=== PATIENT | female | born 1955 | race Caucasian/White ===

== ENCOUNTER 2018-11-21 06:35 | Inpatient (IN) ==
[2018-11-21] MEDS ORDERED: Thrombin Topical Soln 5,000 UNIT Vial TOPICAL ONE (07:03)
[2018-11-21] MEDS ORDERED: Bupivacaine/Epinephrine 0.5% Inj 50 ML Vial ONE ×3 (07:03→07:07)
[2018-11-21] MEDS ORDERED: Gelatin Size 100 Topical Foam ONE (07:04)
[2018-11-21] MEDS ORDERED: Bupivacaine/Epinephrine PF Inj 0.5% 30 ML Vial ONE (07:37)
[2018-11-21] MEDS ORDERED: Metoprolol Tartrate 25 MG Tablet PO ONE (07:45)
[2018-11-21] MEDS ORDERED: Sodium Chlor 0.9% Inj 500 ML IV.CONT ONE (07:45)
[2018-11-21] MEDS ORDERED: Chlorhexidine Gluconate 2% 1 Pack (2 Cloths) TOPICAL ONE (07:45)
[2018-11-21] MEDS ORDERED: Vancomycin Inj 1,400 MG in Sodium Chlor 0.9% Inj 500 ML IV.SIG SCH (08:00)
[2018-11-21] MEDS ORDERED: Lidocaine PF 1% Inj 5 ML Syringe OTHER ONE (08:32)
[2018-11-21] MEDS ORDERED: Phenylephrine/NS 1000 MCG/10ML Syringe IV.PUSH ONE (08:32)
[2018-11-21] MEDS ORDERED: Neostigmine Inj 5 MG/5 ML Syringe IV.PUSH ONE (08:32)
[2018-11-21] MEDS ORDERED: Glycopyrrolate Inj 1 MG/5 ML Syringe IV.PUSH ONE (08:32)
[2018-11-21] MEDS ORDERED: Bupivacaine Liposomal PF 1.3% Inj 20 ML Vial ONE (11:03)
[2018-11-21] MEDS ORDERED: Bupivacaine Liposomal PF 1.3% Inj 20 ML Vial INFILTRATN ONE (11:49)
--- NOTE | 2018-11-21 12:17 | ECG ---
Date Performed: 11/21/2018 Time Performed: 08:13:49 PTAGE: 63 years EKG: Sinus rhythm NORMAL ECG NO PREVIOUS TRACING DOCTOR: Miquel Barney Interpretating Date/Time 11/21/2018 12:11:21
[2018-11-21] MEDS ORDERED: Non-Formulary Drug (Albuterol Sulfate 2 PUFF) INHALATION PRN (12:18)
[2018-11-21] MEDS ORDERED: Aluminum/Magnesium/Simethacone Susp 30 ML UDC PO PRN (12:31)
[2018-11-21] MEDS ORDERED: Menthol 5.8 MG Lozenge BUCCAL PRN (12:31)
[2018-11-21] MEDS ORDERED: Magnesium Sulfate Inj 2 GM in Sodium Chlor 0.9% Inj 96 ML IV.SIG PRN (12:31)
[2018-11-21] MEDS ORDERED: Potassium Chlor 20 mEq Premix 20 MEQ/100 ML PIGGYBACK IV.SIG PRN (12:31)
[2018-11-21] MEDS ORDERED: Calcium Gluconate Inj 1 GM in Sodium Chlor 0.9% Inj 100 ML IV.SIG PRN (12:31)
[2018-11-21] MEDS ORDERED: Bisacodyl 10 MG Supp RECTAL PRN (12:31)
[2018-11-21] MEDS ORDERED: Zolpidem Tartrate 5 MG Tablet PO PRN (12:31)
[2018-11-21] MEDS ORDERED: Acetaminophen 325 MG Tablet PO PRN (12:31)
[2018-11-21] MEDS ORDERED: fentaNYL Citrate Inj 100 MCG/2 ML Ampul ONE ×2 (12:33)
[2018-11-21] MEDS ORDERED: HYDROmorphone PF Inj 0.5 MG/0.5 ML Syringe ONE (12:35)
--- NOTE | 2018-11-21 12:47 | XR ---
EXAM DATE: 11/21/2018 12:39 PM EST AGE/SEX: 63 years / Female INDICATIONS: Lumbar fusion L4-5. CLINICAL DATA: This is the patient's initial encounter. Patient reports that signs and symptoms have been present for 1 day and indicates a pain score of 0/10. MEDICAL/SURGICAL HISTORY: None. None. COMPARISON: No prior exams available for comparison. FINDINGS: Patient is status post lumbar spinal surgery with fusion with pedicular screws at L4-L5.. There is mi ld grade 1 anterior spondylolisthesis of L4 over L5. The hardware is grossly intact. CONCLUSION: Status post lumbar spinal fusion with pedicular screws at L4-5.. Electronically signed by: Kurt Sanchez MD Board Certified Radiologist 11/21/2018 12:45 PM EST
--- NOTE | 2018-11-21 12:50 | P.OP ---
- Preoperative Diagnosis (1) Chronic bilateral low back pain with bilateral sciatica (2) Lumbar stenosis with neurogenic claudication (3) Spondylolisthesis, lumbar region (4) Lumbar facet arthropathy (5) Degeneration of lumbar intervertebral disc Date of procedure: 11/21/18 Procedure: Lumbar L4-5 transforaminal interbody autograft fusion; L4-5 decompressive laminectomy with facetectomy and foraminotomy with microdiscectomy; L4-5 pedicle screw fixation; L4-5 interbody cage placement; microsurgical technique Anesthesia: GETA Surgeon: Gonzalo Ash MD Financial Auditor: Katia Duarte Estimated blood loss (mL): 30 Pathology: none sent Operation and Findings: This was a difficult case due to the patient body habitus and obesity. The step- by-step details of the procedure, indications, alternatives, risks and potential complications were fully discussed with the patient. The patient fully understood. All the questions were answered. No guarantees were given. The patient voiced requesting the procedure and provided informed consents. The patient was offered the alternative of delaying the procedure and continuing with nonsurgical management. Prior to the procedure, the surgical incision was marked in the preoperative surgical holding room, and the procedure, risks, and potential complications revisited with the patient. Placement of electrodes for intraoperative neurophysiological monitoring was completed. The patient was taken to the operative room, and following induction of general anesthesia, endotracheal intubation was performed. A Olivera catheter, bilateral TAMRA hose and sequential compression devices were placed and kept throughout the procedure. The patient was positioned prone, over a José table over a Andrew frame. All pressure in the preoperative surgical holding room points were carefully padded. The eyes were tapped shut after ointment was applied by the anesthesiologist to prevent corneal abrasion. A Meena hugger was placed over the exposed lower body to maintain control of the core body temperature. The lumbar region was prepped and draped in the usual sterile fashion. Once the patient was positioned, a localizing cross-table lateral x-ray was performed with a C-arm. A right midline incision was outlined on the skin. The skin incision made with a #10 blade. Small bleeders were controlled with the cautery. The dissection was then carried out into deeper planes and through the thoracolumbar fascia with a Bovie. The intermuscular septum was identified and the mucles were blunted dissected along the septum and detached from the right L4 and L5 lamina and facet. The facet and transverse process at the right L4-5 levels were exposed and the proper anatomical landmarks were identified. A microsurgical self-retaining retractor was placed on the incision, and a localizing lateralizing cross-table x-ray was performed. Intraoperative microscope magnification used for further dissection. There was significant facet and ligamentum flavum hypertrophy and spondylolisthesis noted. The right L4-5 facet was resected with a drill bit along with the lamina and there was severe foraminal and spinal stenosis from hypertrophied ligamentum flavum and facet which was decompressed. There was disc height collapse from the degeneration along with disc protrusion also leading to the foraminal stenosis. Epidural hemostasis was achieved with bipolar cautery and Gelfoam with thrombin. Subsequently entered into the disc space at the L4-5 level with a # 15 blade and sonny were used for discectomy. I then placed PEEK cage packed with local autograft bone and more local autograft bone was packed adjacent to the cage in interspace for added interbody fusion. With placement of the cage, I was able to distract the interspace and opened up the foramen further bilaterally. Subsequently in order to facilitate the fusion and provide stabilization, pedicle screw fixation was undertaken using [place] spine screws on entry point at the right L4 and L5 levels at the junction of the transverse process and facet through the pedicle into the body. Subsequently using AP and lateral fluoroscopy tap and screw placement. The screws were then connected with a regino and locked in place with caps. The construct appeared very secure at this point. The area was then copiously irrigated with Vancomycin solution and powder. The retractors were removed and the bipolar cautery used for hemostasis. The muscle fascia was then approximated using 2-0 Vicryl interrupted stitches and then 3-0 Vicryl subcuticular stitches also placed in interrupted fashion. The final skin closure was completed with Mastisol and Steri-Strips. A sterile dressing was then applied. The patient then turned in supine position, extubated and taken to recovery room. There were no intraoperative complications. All sponge and needle counts were correct at the end of procedure. Estimated blood loss about 30 ml.
[2018-11-21] MEDS ORDERED: *morphine SULFATE 4 MG/ML PERIprocedure ONLY ONE ×2 (12:56→14:11)
[2018-11-21] MEDS: Hydrocortisone Sod Succinate 100 MG Vial IV.PUSH SCH ×2 (14:41→23:30)
[2018-11-21] MEDS: ceFAZolin Inj 1 GM in Sodium Chlor 0.9% Inj 100 ML IV.SIG SCH (15:07)
[2018-11-21 15:41] LABS: Baso % (Auto) 0.3 % (0.0-2.0); Eos % (Auto) 0.3 % (0.0-4.0); Hemoglobin 11.6 gm/dL (11.6-15.3); Lymph # (Auto) 1.4 th/mm3 (1.0-4.8); Lymph % (Auto) 9.3 % (9.0-44.0); Mean Corpuscular HGB Conc 34.1 % (32.0-36.0); Mean Corpuscular Hemoglobin 32.8 pg (27.0-34.0); Mean Corpuscular Volume 96.1 fL (80.0-100.0); Mean Platelet Volume 6.8 fL (7.0-11.0); Mono # (Auto) 0.4 th/mm3 (0.0-0.9); Mono % (Auto) 2.8 % (0.0-8.0); Neut % (Auto) 87.3 % (16.0-70.0); Platelet Count 390 th/mm3 (150-450); Red Blood Count 3.54 mil/mm3 (4.00-5.30); Red Cell Distribution Width 12.3 % (11.6-17.2); White Blood Count 14.9 th/mm3 (4.0-11.0)
[2018-11-21 15:53] LABS: Calcium 8.4 mg/dL (8.5-10.1); Carbon Dioxide 26.5 meq/L (21.0-32.0); Potassium 3.9 meq/L (3.5-5.1)
[2018-11-21] MEDS ORDERED: Morphine Sulfate Inj 2 MG/ML Vial ONE (16:12)
[2018-11-21] MEDS: Gabapentin 300 MG Capsule PO SCH (17:54)
[2018-11-21] MEDS: Montelukast 10 MG Tablet PO SCH (17:54)
--- NOTE | 2018-11-21 18:09 | P.HPNS ---
History of Present Illness Service: Neurosurgery Primary Care Physician: Mr Jarred Garcia History of Present Illness: 63-year-old lady with a chronic history of low back pain with associated neurogenic claudication and radiculopathy in both legs. She has failed conservative treatment measures including physical therapy and pain management and is debilitated with the activity restriction and discomfort. She has severe L4-5 spinal stenosis from facet and ligamentum flavum hypertrophy along with disc protrusion and advanced degenerative disc disease with grade 2 spondylolisthesis. She requests surgical intervention. - Diagnosis (1) Chronic bilateral low back pain with bilateral sciatica (2) Lumbar stenosis with neurogenic claudication (3) Spondylolisthesis, lumbar region (4) Lumbar facet arthropathy (5) Degeneration of lumbar intervertebral disc Inpatient Certification: I certify that the inpatient services were ordered in accordance with Medicare regulations governing the order. This includes certification that hospital inpatient services are reasonable and necessary and in the case of services not specified as inpatient-only under 42 CFR 419.22(n), that they are appropriately provided as inpatient services in accordance to with the 2-midnight benchmark under 43 CFR 412.3(e) Estimated Total Length of Stay (Days): 3 Plans for Post Hospital Care: Not yet determined [facility] - Medical History Medical History: Medical History (Last Reviewed 11/21/18 @ 18:07 by Gonzalo Ash MD) Asthma Back pain - Tobacco History Second Hand Smoke Exposure: No Tobacco Use In Past 30 Days: No Smoking Status: Former smoker - Alcohol History How Often Do You Have a Drink Containing Alcohol: Never - Substance Use History Substance History: No History of Abuse - Travel History Recent Travel in the [place] Within the Last 8 Weeks: No Recent Travel Out of the Country Within the Last 8 Weeks: No Medications and Allergies Active Medications: Active Medications Acetaminophen (Tylenol) 650 mg PO Q4H PRN PRN Reason: TEMPERATURE > 101.5 F Hydrocodone Bitart/Acetaminophen ([place] 10/325) 1 tab PO Q4H PRN PRN Reason: Pain Scale 1 To 5 Hydrocodone Bitart/Acetaminophen ([place] 10/325) 2 tab PO Q4H PRN PRN Reason: PAIN SCALE 6 TO 10 Al Hydrox/Mg Hydrox/Simethicone (Mag-Al Plus Susp Liq) 30 ml PO Q6H PRN PRN Reason: DYSPEPSIA Al Hydroxide/Mg Hydroxide (Milk Of Magnesia Liq) 30 ml PO Q12H PRN PRN Reason: Mild Constipation Albuterol (Albuterol Neb (Prn)) 2.5 mg NEB Q4HR NEB PRN PRN Reason: WHEEZING Amitriptyline HCl (Elavil) 100 mg PO DAILY [facility] Ascorbic Acid (Vitamin C) 1,000 mg PO DAILY [facility] Bisacodyl (Dulcolax Supp) 10 mg RECTAL DAILY PRN PRN Reason: SEVERE CONSITIPATION Citalopram Hydrobromide (Celexa) 40 mg PO DAILY [facility] Clonidine HCl (Catapres) 0.1 mg PO Q6H PRN PRN Reason: SYS BP GREATER THAN 170 MMHG Cyclobenzaprine HCl (Flexeril) 10 mg PO Q8HR [facility] Last Admin: 11/21/18 15:49 Dose: 10 mg Furosemide (Lasix) 60 mg PO DAILY [facility] Gabapentin (Neurontin) 600 mg PO TID [facility] Last Admin: 11/21/18 17:54 Dose: 600 mg Hydrocortisone Sodium Succinate (Solucortef Inj) 100 mg IV.PUSH Q8HR [facility] Stop: 11/22/18 06:01 Last Admin: 11/21/18 14:41 Dose: 100 mg Vancomycin HCl 1,400 mg/ (Sodium Chloride) 514 mls @ 250 mls/hr IV.SIG HUMAN CAPITAL CONSULTANT [facility] Stop: 11/24/18 07:59 Last Admin: 11/21/18 08:32 Dose: 250 mls/hr Lactated Ringer's (Lr 1000 Ml Inj) 1,000 mls @ 30 mls/hr IV.CONT .Q24H ONE Stop: 11/22/18 07:44 Last Admin: 11/21/18 07:15 Dose: 30 mls/hr Sodium Chloride (Ns Inj) 500 mls @ 30 mls/hr IV.CONT .[id number] ONE Stop: 11/22/18 00:24 Last Admin: 11/21/18 08:19 Dose: Not Given Cefazolin Sodium 1 gm/ Sodium (Chloride) 100 mls @ 200 mls/hr IV.SIG Q8H [facility] Stop: 11/22/18 06:29 Last Admin: 11/21/18 15:07 Dose: 200 mls/hr Potassium Chloride/Sodium Chloride (Ns + Kcl 20 Meq Inj) 1,000 mls @ 100 mls/ hr IV.CONT .Q10H [facility] Stop: 11/22/18 12:44 Last Admin: 11/21/18 15:17 Dose: 100 mls/hr Potassium Chloride (Kcl 20 Meq Premix Inj) 20 meq in 100 mls @ 50 mls/hr IV.SIG UNSCH PRN PRN Reason: POTASSIUM LESS THAN 4 Calcium Gluconate 1 gm/ Sodium (Chloride) 110 mls @ 110 mls/hr IV.SIG UNSCH PRN PRN Reason: SEE LABEL COMMENTS Magnesium Sulfate 2 gm/ Sodium (Chloride) 100 mls @ 100 mls/hr IV.SIG UNSCH PRN PRN Reason: MAGNESIUM LESS THAN 2 Lactulose (Lactulose Liq) 30 ml PO DAILY [facility] Melatonin (Melatonin) 5 mg PO HS PRN PRN Reason: INSOMNIA Menthol ([place]) 1 lozenge BUCCAL UNSCH PRN PRN Reason: SORE THROAT Miscellaneous Information (Misc Nursing Information) 0 each OTHER UNSCH PRN PRN Reason: SEE LABEL COMMENTS Stop: 11/22/18 12:19 Montelukast Sodium (Singulair) 10 mg PO QPM [facility] Last Admin: 11/21/18 17:54 Dose: 10 mg Morphine Sulfate (Morphine Inj) 2 mg IV.PUSH Q2H PRN PRN Reason: PAIN SCALE 6 TO 10 Ondansetron HCl (Zofran Inj) 4 mg IV.PUSH Q6H PRN PRN Reason: NAUSEA OR VOMITING Pantoprazole Sodium (Protonix) 40 mg PO DAILY [facility] Povidone Iodine (Betadine 7.5% Scrub) 1 applicatio TOPICAL ONCE [facility] Stop: 11/25/18 07:59 Last Admin: 11/21/18 08:20 Dose: 1 applicatio Prednisone (Deltasone) 20 mg PO BID [facility] Promethazine HCl (Phenergan Inj) 25 mg IM Q4H PRN PRN Reason: NAUSEA OR VOMITING Senna/Docusate Sodium ([place]-Colace) 1 tab PO BID [facility] Sennosides (Senokot) 17.2 mg PO Q12H PRN PRN Reason: Moderate Constipation Vitamin B Complex/Vitamin C ([place] C) 1 tab PO DAILY [facility] Zolpidem Tartrate (Ambien) 5 mg PO HS PRN PRN Reason: INSOMNIA Allergies Allergy/AdvReac Type Severity Reaction Status Date / Time duloxetine Allergy Nausea/Vomi Verified 11/21/18 07:30 ting zi Allergy Anaphylaxis Verified 11/21/18 07:30 pineapple Allergy Anaphylaxis Verified 11/21/18 07:30 ropinirole AdvReac Nausea/Vomi Verified 11/21/18 07:30 ting Home Medications Medication Instructions Recorded Confirmed Type albuterol sulfate [Ventolin HFA] 2 puff INHALATION Q4-6H PRN 11/21/18 11/21/18 History amitriptyline 100 mg PO DAILY 11/21/18 11/21/18 History ascorbic acid (vitamin C) [Vitamin 1,000 mg PO DAILY 11/21/18 11/21/18 History C] aspirin [Aspirin Low Dose] 81 mg PO DAILY 11/21/18 11/21/18 History citalopram [Celexa] 40 mg PO DAILY 11/21/18 11/21/18 History cyclobenzaprine 10 mg PO TID PRN MDD 10 11/21/18 11/21/18 History furosemide [Lasix] 60 mg PO DAILY 11/21/18 11/21/18 History gabapentin 600 mg PO TID 11/21/18 11/21/18 History hydrocodone-acetaminophen [Vicodin 4 tab PO Q4H 11/21/18 11/21/18 History HP] melatonin 1 mg PO HS PRN 11/21/18 11/21/18 History montelukast [Singulair] 10 mg PO QPM 11/21/18 11/21/18 History omeprazole 40 mg PO DAILY 11/21/18 11/21/18 History prednisone 20 mg PO BID 11/21/18 11/21/18 History vitamin B complex [B 1 tab PO DAILY 11/21/18 11/21/18 History Complex-Vitamin B12] Exam Vital signs: Vital Signs 11/21/18 07:55 11/21/18 12:17 11/21/18 12:30 Temperature 98.8 F 97.6 F Pulse Rate 75 79 71 Respiratory Rate 20 15 17 Blood Pressure 119/68 128/60 127/59 L Pulse Oximetry 98 100 100 11/21/18 12:45 11/21/18 13:00 11/21/18 13:30 Temperature Pulse Rate 73 75 73 Respiratory Rate 16 17 16 Blood Pressure 128/61 126/58 L 122/58 L Pulse Oximetry 100 100 100 11/21/18 14:00 11/21/18 14:30 11/21/18 15:00 Temperature Pulse Rate 75 98 H 92 H Respiratory Rate 16 17 15 Blood Pressure 116/58 L 120/69 114/56 L Pulse Oximetry 100 99 99 11/21/18 16:00 Temperature Pulse Rate 95 H Respiratory Rate 15 Blood Pressure 110/55 L Pulse Oximetry 99 Intake & Output 11/20/18 11/21/18 11/21/18 18:59 06:59 18:59 Intake Total 1900 / 1900 Output Total 430 / 430 Balance 1470 / 1470 Weight 94.4 kg Intake: Anesthesia Amount 1900 / 1900 Output: Estimated Blood Loss 30 / 30 Urine Amount (Catheter) 400 / 400 Indwelling Urethral Catheter 400 / 400 Other: Weight On Admission 94.4 kg - Constitutional no acute distress - Routine HEENT Exam Head: Present: normocephalic, atraumatic Eye: Present: EOMI, PERRL ENT: Present: oropharynx clear - Routine Neck Exam Present: supple, full ROM - Routine Respiratory Exam Present: CTA bilaterally - Routine Cardiovascular Exam Present: RRR, S1, S2 - Routine Abdominal Exam Present: soft, normoactive bowel sounds - Routine Extremities Exam Present: full ROM, pulses intact - Routine Skin Exam Present: intact - Routine Neurological Exam Present: oriented X3, CN II-XII intact, moving all extremities, normal speech Results - Laboratory Findings CBC and BMP: 11/21/18 15:18 11/21/18 15:18 Abnormal lab findings: Abnormal Labs 11/21/18 11/21/18 15:18 15:18 WBC 14.9 H RBC 3.54 L Hct 34.0 L MPV 6.8 L Neut % (Auto) 87.3 H Neut # (Auto) 13.0 H BUN 19 H Creatinine 1.01 H Estimated GFR 56 L Random Glucose 133 H Calcium 8.4 L Caprini VTE Risk Assessment Caprini Risk Assessment Model: Point Value = 1 Point Value = 2 Point Value = 3 Point Value = 5 Age 41-60 Minor surgery BMI > 25 kg/m2 Swollen legs Varicose veins or History of unexplained or recurrent spontaneous Oral contraceptives or hormone replacement Sepsis (< 1 month) Serious lung disease, including pneumonia (< 1 month) Abnormal pulmonary function Acute myocardial infarction Congestive heart failure (< 1 month) History of inflammatory bowel disease Medical patient at bed rest Age 61-74 Arthroscopic surgery Major open surgery (> 45 min) Laparoscopic surgery (> 45 min) Malignancy Confined to bed (> 72 hours) Immobilizing plaster cast Central venous access Age >= 75 History of VTE Family history of VTE Factor V Leiden Prothrombin [id number] Lupus anticoagulant Anticardiolipin antibodies Elevated serum homocysteine Heparin-induced thrombocytopenia Other congenital or acquired thrombophilia Stroke (< 1 month) Elective arthroplasty Hip, pelvis, or leg fracture Acute spinal cord injury (< 1 month) Prophylaxis Regimen: Total Risk Factor Score Risk Level Prophylaxis Regimen 0-1 Low Early ambulation 2 Moderate Order ONE of the following: *Sequential Compression Device (SCD) *Heparin 5000 units SQ BID 3-4 Higher Order ONE of the following medications: *Heparin 5000 units SQ TID *Enoxaparin/Lovenox 40 mg SQ daily (WT < 150 kg, CrCl > 30 mL/min) *Enoxaparin/Lovenox 30 mg SQ daily (WT < 150 kg, CrCl > 10-29 mL/min) *Enoxaparin/Lovenox 30 mg SQ BID (WT < 150 kg, CrCl > 30 mL/min) AND/OR *Sequential Compression Device (SCD) 5 or more Highest Order ONE of the following medications: *Heparin 5000 units SQ TID (Preferred with Epidurals) *Enoxaparin/Lovenox 40 mg SQ daily (WT < 150 kg, CrCl > 30 mL/min) *Enoxaparin/Lovenox 30 mg SQ daily (WT < 150 kg, CrCl > 10-29 mL/min) *Enoxaparin/Lovenox 30 mg SQ BID (WT < 150 kg, CrCl > 30 mL/min) AND *Sequential Compression Device (SCD) Assessment and Plan - Assessment (1) Chronic bilateral low back pain with bilateral sciatica Code(s): M54.42 - Lumbago with sciatica, left side; M54.41 - Lumbago with sciatica, right side; G89.29 - Other chronic pain Status: Chronic (2) Lumbar stenosis with neurogenic claudication Code(s): M48.062 - Spinal stenosis, lumbar region with neurogenic claudication Status: Chronic (3) Spondylolisthesis, lumbar region Code(s): M43.16 - Spondylolisthesis, lumbar region Status: Chronic (4) Lumbar facet arthropathy Code(s): M47.816 - Spondylosis without myelopathy or radiculopathy, lumbar region Status: Chronic (5) Degeneration of lumbar intervertebral disc Code(s): M51.36 - Other intervertebral disc degeneration, lumbar region Status : Chronic - Plan 63-year-old lady with chronic low back pain and severe neurogenic claudication and bilateral radiculopathy from severe L4-5 spinal stenosis with degenerative disc disease and spondylolisthesis. Plan is for L4-5 decompressive laminectomy with transforaminal interbody fusion and pedicle screw fixation. The risks and benefit involved have been discussed and no guarantees given. She requested to proceed and gives informed consent. H&P: Quality - VTE Deep Vein Thrombosis/Pulmonary Embolism Present on Admission: No
[2018-11-21] MEDS: Morphine Inj 4 MG/ML Vial IV.PUSH PRN (20:32)
[2018-11-22] MEDS: Melatonin 5 MG Tablet PO PRN ×2 (00:43→21:50)
[2018-11-22] MEDS: ceFAZolin Inj 1 GM in Sodium Chlor 0.9% Inj 100 ML IV.SIG SCH ×2 (00:44→08:08)
[2018-11-22] MEDS: Senna/Docusate Sodium 8.6/50 MG Tablet PO SCH ×3 (00:45→21:55)
[2018-11-22] MEDS: Morphine Inj 4 MG/ML Vial IV.PUSH PRN ×4 (01:35→18:50)
[2018-11-22] MEDS: Hydrocortisone Sod Succinate 100 MG Vial IV.PUSH SCH (07:48)
[2018-11-22] MEDS: Vitamin B Complex/Vitamin C Tablet PO SCH (08:49)
[2018-11-22] MEDS: Ascorbic Acid 500 MG Tablet PO SCH (08:52)
[2018-11-22] MEDS: Gabapentin 300 MG Capsule PO SCH ×3 (08:52→18:45)
[2018-11-22] MEDS: Furosemide 20 MG Tablet PO SCH (08:52)
[2018-11-22] MEDS: Amitriptyline 100 MG Tablet PO SCH (08:56)
--- NOTE | 2018-11-22 10:25 | P.PNNS ---
Subjective Interval history: 63-year-old lady postop day #1 status post L4-5 transforaminal decompression with interbody fusion. Incision site clean and dry. Relates incisional pain which is controlled. Sitting up in chair with the brace on and tolerating regular diet. Physical Exam Vital signs: Vital Signs 11/21/18 12:17 11/21/18 12:30 11/21/18 12:45 Temperature 97.6 F Pulse Rate 79 71 73 Respiratory Rate 15 17 16 Blood Pressure 128/60 127/59 L 128/61 Pulse Oximetry 100 100 100 11/21/18 13:00 11/21/18 13:30 11/21/18 14:00 Temperature Pulse Rate 75 73 75 Respiratory Rate 17 16 16 Blood Pressure 126/58 L 122/58 L 116/58 L Pulse Oximetry 100 100 100 11/21/18 14:30 11/21/18 15:00 11/21/18 16:00 Temperature Pulse Rate 98 H 92 H 95 H Respiratory Rate 17 15 15 Blood Pressure 120/69 114/56 L 110/55 L Pulse Oximetry 99 99 99 11/21/18 17:00 11/21/18 18:10 11/21/18 19:45 Temperature 98.0 F 98.3 F Pulse Rate 96 H 97 H 96 H Respiratory Rate 17 15 18 Blood Pressure 127/74 120/59 L 138/63 Pulse Oximetry 100 99 97 11/21/18 20:20 11/21/18 20:22 11/21/18 23:20 Temperature 98.1 F Pulse Rate 103 H 84 Respiratory Rate 25 H 18 Blood Pressure 117/62 Pulse Oximetry 97 97 11/22/18 03:46 11/22/18 04:10 11/22/18 07:36 Temperature 98.2 F 98.3 F Pulse Rate 75 75 Respiratory Rate 18 18 22 Blood Pressure 117/73 131/60 Pulse Oximetry 100 99 11/22/18 08:50 11/22/18 08:54 Temperature Pulse Rate Respiratory Rate 18 Blood Pressure Pulse Oximetry 98 Intake & Output 11/21/18 11/22/18 11/22/18 18:59 06:59 18:59 Intake Total 2380 / 2380 1714 / 1714 100 / 100 Output Total 1430 / 1430 3800 / 3800 Balance 950 / 950 -2086 / -2085 100 / 100 Weight 94.4 kg Intake: IV 1714 / 1714 100 / 100 NS + KCl 20 mEq Inj 1,000 ML @ 1000 / 1000 100 mls/hr IV.CONT .Q10H [facility] Rx #:[id number] Vancomycin Inj 1,400 MG In NS 514 / 514 Inj 500 ML @ 250 mls/hr IV.SIG AUTOMATION MANAGER [facility] Rx#:[id number] Ancef Inj 1 GM In NS Inj 100 ML 200 / 200 100 / 100 @ 200 mls/hr IV.SIG Q8H [facility] Rx #:[id number] Oral 480 / 480 Anesthesia Amount 1900 / 1900 Output: Urine 3800 / 3800 Estimated Blood Loss 30 / 30 Urine Amount (Catheter) 1400 / 1400 Indwelling Urethral Catheter 1400 / 1400 Other: Weight On Admission 94.4 kg - Constitutional no acute distress - Routine HEENT Exam Head: Present: normocephalic, atraumatic Eye: Present: EOMI, PERRL ENT: Present: oropharynx clear - Routine Neck Exam Present: supple, full ROM - Routine Respiratory Exam Present: CTA bilaterally - Routine Cardiovascular Exam Present: RRR, S1, S2 - Routine Abdominal Exam Present: soft, normoactive bowel sounds - Routine Skin Exam Present: intact, wounds (Lumbar incision site clean and dry with Steri-Strips in place) - Routine Neurological Exam Present: oriented X3, CN II-XII intact, moving all extremities, normal speech - Urinary Catheter Management Indwelling Urethral Catheter Cath placed during this visit: yes Reason for continuing: Hourly intake/output Insertion date: 11/21/18 Insertion time: 08:50 Assessment and Plan - Assessment (1) Chronic bilateral low back pain with bilateral sciatica Code(s): M54.42 - Lumbago with sciatica, left side; M54.41 - Lumbago with sciatica, right side; G89.29 - Other chronic pain Status: Chronic (2) Lumbar stenosis with neurogenic claudication Code(s): M48.062 - Spinal stenosis, lumbar region with neurogenic claudication Status: Chronic (3) Spondylolisthesis, lumbar region Code(s): M43.16 - Spondylolisthesis, lumbar region Status: Chronic (4) Lumbar facet arthropathy Code(s): M47.816 - Spondylosis without myelopathy or radiculopathy, lumbar region Status: Chronic (5) Degeneration of lumbar intervertebral disc Code(s): M51.36 - Other intervertebral disc degeneration, lumbar region Status : Chronic - Plan 63-year-old lady with chronic low back pain and severe neurogenic claudication and bilateral radiculopathy from severe L4-5 spinal stenosis with degenerative disc disease and spondylolisthesis. Doing well postop day #1. Proventil inhalers as needed for asthma along with pain control. Discontinue IV fluids and Olivera. Increase activity status as tolerated with physical therapy. Mechanical DVT prophylaxis.
[2018-11-22] MEDS: Montelukast 10 MG Tablet PO SCH (18:45)
[2018-11-22] MEDS: predniSONE 20 MG Tablet PO SCH (21:50)
[2018-11-23] MEDS: Morphine Inj 4 MG/ML Vial IV.PUSH PRN ×5 (01:30→20:57)
[2018-11-23 08:39] VITALS: RESP 20
[2018-11-23] MEDS: Senna/Docusate Sodium 8.6/50 MG Tablet PO SCH ×2 (09:06→20:57)
[2018-11-23] MEDS: Ascorbic Acid 500 MG Tablet PO SCH (09:06)
[2018-11-23] MEDS: predniSONE 20 MG Tablet PO SCH ×2 (09:07→20:57)
[2018-11-23] MEDS: Amitriptyline 100 MG Tablet PO SCH (09:07)
[2018-11-23] MEDS: Gabapentin 300 MG Capsule PO SCH ×3 (09:07→18:18)
[2018-11-23] MEDS: Furosemide 20 MG Tablet PO SCH (09:07)
[2018-11-23] MEDS: Vitamin B Complex/Vitamin C Tablet PO SCH (09:08)
[2018-11-23] MEDS: Montelukast 10 MG Tablet PO SCH (18:18)
--- NOTE | 2018-11-23 18:21 | P.DCO ---
- Physical Therapy Order: Evaluate and treat, Improve ambulation, Strength and gait training - Certification I have seen patient Valentina Sanchez on 11/23/18. My clinical findings support the need for the requested home health care services because: Deconditioned with increased weakness, Limited ability to care for self I certify that my clinical findings support that this patient is homebound because: Post-op weakness, Unsafe to leave home unassisted, Unable to use public transportation
--- NOTE | 2018-11-23 18:24 | P.PNNS ---
Subjective Interval history: 63-year-old lady postop day #2 status post L4-5 transforaminal decompression with interbody fusion. Incision site clean and dry. Relates incisional pain which is controlled and resolution of pain in her legs with walking. Sitting up in chair with the brace on and tolerating regular diet. Physical Exam Vital signs: Vital Signs 11/22/18 19:40 11/23/18 03:50 11/23/18 07:30 Temperature 98.6 F 98.5 F 98.2 F Pulse Rate 82 77 82 Respiratory Rate 18 19 20 Blood Pressure 103/58 L 114/69 123/56 L Pulse Oximetry 99 95 97 11/23/18 12:05 11/23/18 15:30 Temperature 97.9 F 98.3 F Pulse Rate 75 78 Respiratory Rate 20 20 Blood Pressure 93/55 L 108/60 Pulse Oximetry 95 100 Intake & Output 11/22/18 11/23/18 11/23/18 18:59 06:59 18:59 Intake Total 820 / 820 1510 / 1510 360 / 360 Output Total 2500 / 2500 Balance -1680 / -1680 1510 / 1510 360 / 360 Weight 103.8 kg Intake: IV 100 / 100 550 / 550 Ancef Inj 1 GM In NS Inj 100 ML 100 / 100 @ 200 mls/hr IV.SIG Q8H [facility] Rx #:[id number] Oral 720 / 720 960 / 960 360 / 360 Output: Urine Amount (Catheter) 2500 / 2500 Indwelling Urethral Catheter 2500 / 2500 Other: # Voids 5 Date of Last Bowel Movement 11/22/18 - Constitutional no acute distress - Routine HEENT Exam Head: Present: normocephalic, atraumatic Eye: Present: EOMI, PERRL ENT: Present: oropharynx clear - Routine Neck Exam Present: supple, full ROM - Routine Respiratory Exam Present: CTA bilaterally - Routine Cardiovascular Exam Present: RRR, S1, S2 - Routine Abdominal Exam Present: soft, normoactive bowel sounds - Routine Extremities Exam Present: full ROM - Routine Skin Exam Present: intact, wounds (Incision site clean and dry with no drainage and Steri- Strips in place) - Routine Neurological Exam Present: oriented X3, CN II-XII intact, moving all extremities, normal speech - Urinary Catheter Management Indwelling Urethral Catheter Cath placed during this visit: yes, but has since been removed by the nurse Reason for continuing: Hourly intake/output Insertion date: 11/21/18 Insertion time: 08:50 Removal date: 11/22/18 Removal time: 09:45 Assessment and Plan - Assessment (1) Chronic bilateral low back pain with bilateral sciatica Code(s): M54.42 - Lumbago with sciatica, left side; M54.41 - Lumbago with sciatica, right side; G89.29 - Other chronic pain Status: Chronic (2) Lumbar stenosis with neurogenic claudication Code(s): M48.062 - Spinal stenosis, lumbar region with neurogenic claudication Status: Chronic (3) Spondylolisthesis, lumbar region Code(s): M43.16 - Spondylolisthesis, lumbar region Status: Chronic (4) Lumbar facet arthropathy Code(s): M47.816 - Spondylosis without myelopathy or radiculopathy, lumbar region Status: Chronic (5) Degeneration of lumbar intervertebral disc Code(s): M51.36 - Other intervertebral disc degeneration, lumbar region Status : Chronic - Plan 63-year-old lady with chronic low back pain and severe neurogenic claudication and bilateral radiculopathy from severe L4-5 spinal stenosis with degenerative disc disease and spondylolisthesis. Doing well postop day #2 and ambulated several times in the hallways. Proventil inhalers as needed for asthma along with pain control. Mechanical DVT prophylaxis. Plan discharge home with home physical therapy tomorrow if continues to do well.
[2018-11-24] MEDS: Senna/Docusate Sodium 8.6/50 MG Tablet PO SCH (09:03)
[2018-11-24] MEDS: Amitriptyline 100 MG Tablet PO SCH (09:03)
[2018-11-24] MEDS: Ascorbic Acid 500 MG Tablet PO SCH (09:03)
[2018-11-24] MEDS: Furosemide 20 MG Tablet PO SCH (09:03)
[2018-11-24] MEDS: Gabapentin 300 MG Capsule PO SCH (09:03)
[2018-11-24] MEDS: predniSONE 20 MG Tablet PO SCH (09:03)
[2018-11-24] MEDS: Vitamin B Complex/Vitamin C Tablet PO SCH (09:08)
[2018-11-24 09:30] VITALS: BP 143/68; PULSE 86; TEMP 98.7; O2SAT 97
== END 2018-11-24 10:19 | disposition home health service (06) | DRG 460 ==
LOC: HSDI 06:35 → N05 18:27
PROVIDERS: ADMIT Neurological Surgery; ATTEND Neurological Surgery
CPT/HCPCS: 36415; 72100; 76000; 80048; 83735; 85025; 86850; 86900; 86901; 93005; 94150; 94640; 94664; 94665; 97110; 97116; 97163; C1713; C9290; J0690; J1100; J1170; J1720; J2250; J2270; J2370; J2405; J2704; J2710; J3010; J3370; J3480; J7040; J7120; J7506; J7512; K0636; L0627